=== PATIENT | female | born 1965 | race Caucasian/White ===

== ENCOUNTER 2020-09-08 12:02 | Outpatient (REF) | payer SELFPAY ==
[2020-09-11 04:07] LABS: SARS-CoV-2 RNA Undetected (Undetected); SARS-CoV-2 Specimen Source Nasal
== END 2020-09-08 12:22 ==
LOC: NCHCN 12:02
PROVIDERS: PCP Family Medicine; Visit Provider Family Medicine
DX: Z20.828 Contact with and (suspected) exposure to other viral communicable diseases (principal)
CPT/HCPCS: U0003

== ENCOUNTER 2023-08-04 16:36 | Outpatient (REF) | payer OTHER, SELFPAY ==
--- NOTE | 2023-08-04 15:45 | PAPFT_PTH ---
PATIENT: Argenis Lewis LOC: [facility] U#:[id number] AGE/SX: 58/F ROOM: RE08/04/[address]: Sarah Lara : 1965 BED: DIS: 08/04/2023 SPEC #: [id number] RECD: 08/05/23 17:24 STATUS: DELFIN REQ #: [id number] MINA: 08/04/23 15:[address]: Sarah Lara DEPT: [facility] Cytology RECD BY: Ana Paula Burroughs Tissues: 1 - CX/ENDOCX FOR PAP SMEARS Procedures: PAP THIN PREP/[facility] Screening HPV DNA PROBE Comments: [id number] (HPV 16 & 18/45) (CHLAMYDIA/GC)
[2023-08-06 15:33] LABS: Chlamydia Result Negative (Negative); GC Result Negative (Negative)
== END 2023-08-04 16:37 | disposition home or self-care (01) ==
LOC: NCHCN 16:36
PROVIDERS: PCP Family Medicine; Visit Provider Family Medicine
DX: Z00.00 Encounter for general adult medical examination without abnormal findings (principal); Z12.4 Encounter for screening for malignant neoplasm of cervix
CPT/HCPCS: 87491; 87591; 88142; 87624